=== PATIENT | male | born 1965 | race Caucasian/White ===

== ENCOUNTER 2020-08-16 10:31 | Outpatient (REF) | payer SELFPAY | END 2020-08-16 10:32 | disposition home or self-care (01) | LOC: HO.XRAY 10:31 | PROVIDERS: Visit Provider Otolaryngology | DX: Z13.89 Encounter for screening for other disorder (principal) ==

== ENCOUNTER → 2021-04-17 15:16 | Outpatient (BNVA) | payer OTHER, SELFPAY | PROVIDERS: PCP Physician Assistant; Visit Provider Internal Medicine Cardiovascular Disease | DX: I25.10 Atherosclerotic heart disease of native coronary artery without angina pectoris (principal) | CPT/HCPCS: 93005 ==

== ENCOUNTER 2021-05-23 08:39 | Outpatient (REF) | payer OTHER, SELFPAY ==
[2021-05-23 10:28] LABS: Cholesterol 162 mg/dL; HDL Cholesterol 56 mg/dL; LDL Cholesterol Calculated 79 mg/dl; Triglycerides 135 mg/dL
[2021-05-26 12:21] LABS: CRP High Sensitivity 1.5 mg/L
== END 2021-05-23 08:40 | disposition home or self-care (01) ==
LOC: HO.LAB 08:39
PROVIDERS: PCP Nurse Practitioner Family; Visit Provider Internal Medicine Cardiovascular Disease
DX: I25.10 Atherosclerotic heart disease of native coronary artery without angina pectoris (principal); E78.5 Hyperlipidemia, unspecified
CPT/HCPCS: 36415; 80061; 86141

== ENCOUNTER 2021-09-20 08:22 | Outpatient (REF) | payer OTHER, SELFPAY ==
[2021-09-20 10:11] LABS: Cholesterol 128 mg/dL; HDL Cholesterol 49 mg/dL; LDL Cholesterol Calculated 61 mg/dl; Triglycerides 92 mg/dL
== END 2021-09-20 08:23 | disposition home or self-care (01) ==
LOC: HO.LAB 08:22
PROVIDERS: Visit Provider Internal Medicine Cardiovascular Disease
DX: I25.10 Atherosclerotic heart disease of native coronary artery without angina pectoris (principal)
CPT/HCPCS: 36415; 80061

== ENCOUNTER 2023-08-02 18:57 | Emergency (ER) | payer OTHER, SELFPAY ==
[2023-08-02 19:19] VITALS: BP 148/88; PULSE 96; O2SAT 95
== END 2023-08-02 20:00 | disposition left against medical advice (07) ==
PROVIDERS: Emergency Provider Emergency Medicine
DX: F10.129 Alcohol abuse with intoxication, unspecified (principal)

== ENCOUNTER 2023-08-19 14:45 | Outpatient (AMB) | payer OTHER, SELFPAY ==
--- NOTE | 2023-08-19 14:55 | A.OFFVIS_ITS ---
Intake Vital Signs 08/19/23 14:56 Height 5 ft 11 in Weight 207 lb 3.752 oz BMI 28.9 BP 120/76 Blood Pressure Location Lt brachial Position Sitting Pulse 67 Intake Visit Reasons: 2 year f/u with EKG Intake Note: 2 year follow-up with ekg feeling good Pacs Specialist Required: No Allergies No Known Allergies Allergy (Verified 04/17/21 15:31) Medication List - Last Reconciled 08/19/23 by Suleman Nagy MD aspirin (Adult Aspirin Regimen) 81 mg PO DAILY atorvastatin 80 mg PO DAILY cholecalciferol (vitamin D3) 25 mcg PO DAILY mineral oil (Pure and Gentle (mineral oil) enema) 118 mL MT DAILY PRN multivitamin 1 tab PO DAILY omeprazole 20 mg PO DAILY HPI HPI Comments History of Present Illness Details Eduardo comes for follow up after 2 years. He has been doing very well and has been exercising regularly at high-intensity without having any symptoms. Denies any exertional chest pain or shortness of breath. Takes all his medications. Denies any palpitations, lightheadedness, syncope. His last LDL is 71 mg/dL. [facility] Medical History CAD (coronary artery disease) Family History Mother Alzheimer disease Father Lung cancer Brother CAD (coronary artery disease) Brother Prostate cancer Social History Alcohol intake: current Alcohol intake frequency: a few times a week Alcohol type: beer and wine Patient Tobacco Use Status: Never used Tobacco Review of Systems Const Denies chills, Denies fatigue, Denies fever(s), Denies frequent falls, Denies weakness, Denies weight gain and Denies weight loss ENT Denies dizziness Card Denies chest pain, Denies leg edema, Denies lightheadedness, Denies palpitations, Denies dyspnea, Denies dyspnea on exertion, Denies orthopnea and Denies other (loss of consciousness) Resp Denies cough, Denies dyspnea and Denies dyspnea on exertion GI Denies hematochezia and Denies change in stool character Musc Denies abnormal gait, Denies muscle weakness, Denies numbness, Denies radiating pain into limb and Denies tingling Neuro Denies abnormal gait, Denies dizziness, Denies frequent falls, Denies numbness, Denies tingling and Denies weakness Endo Denies fatigue and Denies palpitations Physical Exam Vital Signs: Last Vital Signs Pulse 67 08/19/23 14:56 BP 120/76 08/19/23 14:56 BMI result Body Mass Index 28.9 Const General: cooperative, comfortable, no acute distress and alert Nutritional Appearance: overweight Orientation/consciousness: patient oriented x3 Limitations: no limitations Neck Neck: Yes trachea midline, Yes supple and Yes no JVD Carotids: no bruits Resp Effort & Inspection: normal respiratory effort Auscultation: clear to auscultation bilaterally Cardio Jugular venous distension: no JVD Palpation: normal PMI Rate: regular rate Rhythm: regular rhythm Heart sounds: S1 normal heart sound present, S2 normal heart sound present, no click, no gallops, no murmurs and no rubs Peripheral pulses: Peripheral pulses 2+ throughout GI Auscultation: normal bowel sounds Skin General skin exam: no rashes or lesions noted Neuro General: patient oriented x3 and no focal motor deficits Extrem General: Yes no clubbing, cyanosis or edema Office Procedures EKG Details: EKG shows normal sinus rhythm normal EKG at 67 beats per minute [id number], Complete Assessment & Plan Assessment & Plan (1) CAD (coronary artery disease): Code(s): I25.10 - Atherosclerotic heart disease of [place] coronary artery without angina pectoris Plan: CAD by elevated coronary calcium score, still appears to be clinically nonobstructive as he has no symptoms at high workload. We discuss of management again. Continue aggressive risk factor modification with high-intensity statin therapy with LDL well optimized at this point time. Id target goal LDL would be less than 70 mg/dL. I would also suggest next time with her lipid panel to perform a high sensitive C-reactive protein to evaluate for vascular inflammation. Advised to call me with any new symptoms with exertion that might require further workup. He understands agrees. Advise heart healthy lifestyle. Follow up in the clinic in 2 years time, sooner p.r.n.. Thank you for allowing me to partake in his care Coding Level of Care Code Est Pt Level 3 (41098) Diagnoses CAD (coronary artery disease) I25.10 CPT Codes EKG - CPT: 13799-[id number], Complete ([id number])
[2023-08-19 14:56] VITALS: BP 120/76; PULSE 67; BMI 28.9
== END 2023-08-19 15:25 | disposition home or self-care (01) ==
PROVIDERS: Visit Provider Internal Medicine Cardiovascular Disease
DX: I25.10 Atherosclerotic heart disease of native coronary artery without angina pectoris (principal)
CPT/HCPCS: 93010; 99213

== ENCOUNTER → 2023-08-19 14:45 | Outpatient (BNVA) | payer OTHER, SELFPAY | PROVIDERS: Visit Provider Internal Medicine Cardiovascular Disease | DX: I25.10 Atherosclerotic heart disease of native coronary artery without angina pectoris (principal) | CPT/HCPCS: 93005 ==